=== PATIENT | male | born 1960 ===

== ENCOUNTER 2021-02-11 03:15 | Emergency (ER) | payer OTHER ==
[2021-02-12 13:20] VITALS: BP 130/85
== END 2021-02-12 13:20 ==
LOC: EEVIPCON 03:15 → ED 03:15
DX: T14.91XA Suicide attempt, initial encounter (principal); Z03.818 Encounter for observation for suspected exposure to other biological agents ruled out; I10 Essential (primary) hypertension; E11.9 Type 2 diabetes mellitus without complications; X58.XXXA Exposure to other specified factors, initial encounter; Y93.89 Activity, other specified; Y92.89 Other specified places as the place of occurrence of the external cause; Y99.8 Other external cause status
CPT/HCPCS: 36415; 80053; 80307; 81001; 82962; 85025; 87086; 96372; 99285; J1200; J1630; J3486; U0003; 80320; G0480

== ENCOUNTER 2021-03-12 23:26 | Emergency (ER) | payer SELFPAY ==
--- NOTE | 2021-03-13 01:03 | Event Note ---
ED Screening Note Date of service: 03/13/21 Time: 00:58 ED Screening Note: 60 y/o male pt w/ hx of multiple mental health issues (per Liborio Negron Torres staff member accompanying patient) presents to the ED via EMS w/ complaints of dizziness and hypotension starting tonight. No new medications. Pt has a hx of HTN and takes BP medication in the morning. He was not symptomatic at the time of his last scheduled dose. No recent fall, trauma, or injury. Systolic BP en route to ED was reportedly in the 80's. BP 84/44 in triage. General: Awake, appropriately interactive, no acute distress. Neck: Supple. Full range of motion intact. Cardiovascular: Normal peripheral perfusion. Pulmonary: No respiratory distress. Patient is speaking normally without use of accessory muscles. Skin: No apparent rashes or lesions. Neurological: No facial asymmetry. Speech is clear. Follows commands. Patient is alert and oriented. Musculoskeletal: Moves all four extremities spontaneously with normal range of motion. Psych: Cooperative. Appropriate mood and affect. Ordered EKG, labs, chest x-ray. Requested cardiac nurse specialist, continuous pulse oximetry, peripheral IV access. electrical cad technician and charge nurse aware. I have greeted and performed a focused rapid initial assessment of this patient. A comprehensive ED assessment and evaluation of the patient, analysis of all test results, and completion of the medical decision-making process will be conducted by additional ED providers. This initial assessment/diagnostic orders/clinical plan/treatment(s) is/are subject to change based on patients health status, clinical progression and re-assessment. Further treatment and workup at subsequent clinical provider's discretion. Patient/guardian urged not to elope from the ED as their condition may be serious if not clinically assessed and managed.
[2021-03-13] MEDS ORDERED: SODIUM CHLORIDE 0.9% 1000 ML 1,000 ML IV ONE (01:22)
[2021-03-13 01:46] LABS: Basophils % (Auto) 0.5 % (0.0-1.8); Eosinophils # (Auto) 0.1 K/mm3 (0.0-0.4); Eosinophils % (Auto) 1.6 % (0.0-4.3); Hematocrit 43.6 % (35.5-45.6); Hemoglobin 14.7 gm/dl (11.8-15.2); Lymphocytes # (Auto) 1.2 K/mm3 (1.2-5.4); Lymphocytes % (Auto) 18.8 % (13.4-35.0); Mean Corpuscular HGB Conc 34 % (32-34); Mean Corpuscular Volume 90 fl (84-94); Monocytes # (Auto) 0.8 K/mm3 (0.0-0.8); Monocytes % (Auto) 11.8 % (0.0-7.3); Platelet Count 232 K/mm3 (140-440); Red Blood Count 4.82 M/mm3 (3.65-5.03); Red Cell Distribution Width 14.7 % (13.2-15.2)
[2021-03-13 02:04] LABS: Alanine Aminotransferase 22 units/L (7-56); BUN/Creatinine Ratio 14; Blood Urea Nitrogen 13 mg/dL (9-20); Hemolysis Index 3
--- NOTE | 2021-03-13 02:52 | Emergency Department Report ---
ED General Adult HPI - General Chief complaint: Dizziness Stated complaint: LOW BLOOD PRESSURE Time Seen by Provider: 03/13/21 01:02 Source: patient Mode of arrival: Wheelchair Limitations: No Limitations - History of Present Illness Initial comments: 60-year-old male, history of hypertension, diabetes, depression, presents to ED with low blood pressure from [facility]. Patient apparently complained of some dizziness. Blood pressure found to be 70/49 at the facility. Patient sent to ED for further evaluation. Patient currently taking Wellbutrin, Prozac, Seroquel, Metformin, Toprol, lisinopril, baby aspirin. Patient states he was given Seroquel prior to his blood pressure dropping and believes this is the cause of his hypotension. Patient also states he did not eat or drink anything today. He does not give a reason as to why. He denies any chest pain, abdominal pain, shortness of breath, vomiting, diarrhea. Patient seen and evaluated in acute waiting room area as there are no available rooms in the ED due to COVID-19 pandemic. -: This evening Consistency: constant Improves with: none Worsens with: none Associated Symptoms: weakness. denies: chest pain, fever/chills, nausea/vomiting, shortness of breath - Related Data Home Medications Medication Instructions Recorded Confirmed Last Taken Enalapril Maleate [Vasotec] 10 mg PO DAILY 02/11/21 02/11/21 Unknown Fenofibric Acid (Choline) 135 mg PO DAILY 02/11/21 02/11/21 Unknown [Fenofibric Acid] Metoprolol [Lopressor] 25 mg PO DAILY 02/11/21 02/11/21 Unknown metFORMIN [Glucophage] 500 mg PO QDAY 02/11/21 02/11/21 Unknown Allergies Allergy/AdvReac Type Severity Reaction Status Date / Time Penicillins Allergy Unknown Verified 03/13/21 00:40 ED Review of Systems ROS: Stated complaint: LOW BLOOD SUGAR Other details as noted in HPI Comment: All other systems reviewed and negative Constitutional: denies: fever Respiratory: denies: shortness of breath Cardiovascular: denies: chest pain Gastrointestinal: denies: abdominal pain, vomiting, diarrhea ED Past Medical Hx - Past Medical History Hx Hypertension: Yes Hx Diabetes: Yes - Surgical History Additional Surgical History: back surgery >10 yrs ago - Social History Smoking Status: Never Smoker Substance Use Type: None - Medications Home Medications: Home Medications Medication Instructions Recorded Confirmed Last Taken Type Enalapril Maleate [Vasotec] 10 mg PO DAILY 02/11/21 02/11/21 Unknown History Fenofibric Acid (Choline) 135 mg PO DAILY 02/11/21 02/11/21 Unknown History [Fenofibric Acid] Metoprolol [Lopressor] 25 mg PO DAILY 02/11/21 02/11/21 Unknown History metFORMIN [Glucophage] 500 mg PO QDAY 02/11/21 02/11/21 Unknown History ED Physical Exam - General Limitations: No Limitations General appearance: alert, in no apparent distress - Head Head exam: Present: atraumatic, normocephalic - Eye Eye exam: Present: normal appearance, EOMI - ENT ENT exam: Present: mucous membranes moist - Neck Neck exam: Present: normal inspection - Respiratory Respiratory exam: Present: normal lung sounds bilaterally. Absent: respiratory distress - Cardiovascular Cardiovascular Exam: Present: regular rate, normal rhythm - GI/Abdominal GI/Abdominal exam: Present: soft. Absent: distended, tenderness - Extremities Exam Extremities exam: Present: normal inspection - Neurological Exam Neurological exam: Present: alert. Absent: motor sensory deficit - Psychiatric Psychiatric exam: Present: flat affect - Skin Skin exam: Present: warm, dry, intact, normal color ED Course Vital Signs 03/13/21 03/13/21 00:35 03:31 Temperature 97.5 F L Pulse Rate 71 77 Respiratory 16 Rate Blood Pressure 84/44 123/64 [Right] O2 Sat by Pulse 100 Oximetry ED Medical Decision Making - Lab Data Result diagrams: 03/13/21 00:59 03/13/21 00:59 - Medical Decision Making 60-year-old male presents to ED from psychiatric facility with low blood pressure. Initial BP in ED 84/44. Patient had no complaints except for dizziness. Patient refused chest x-ray and UA testing. He is afebrile. WBCs a re normal. He is in no respiratory distress, O2 sats are normal. Remainder of labs are normal. Patient was given 1 L bolus of normal saline. With repeat vital sign check, BP improved to 123/64. Patient states he is feeling better at this time. Will be discharged back to psychiatric facility, with instructions to hold blood pressure medications. Return precautions given. - Differential Diagnosis Dehydration, medication effect Critical care attestation.: If time is entered above; I have spent that time in minutes in the direct care of this critically ill patient, excluding procedure time. ED Disposition Clinical Impression: Hypotension Disposition: 01 HOME / SELF CARE / HOMELESS Is pt being admited?: No Condition: Stable Instructions: Hypotension, [id number] Referrals: PRIMARY CARE, [Primary Care Provider] - 3-5 Days Time of Disposition: 03:36 Print Language: WELSH
[2021-03-13 03:33] VITALS: BP 123/64
== END 2021-03-13 03:48 | disposition home or self-care (01) ==
LOC: ED 23:26
DX: I95.9 Hypotension, unspecified (principal); I10 Essential (primary) hypertension; E11.9 Type 2 diabetes mellitus without complications; Z79.899 Other long term (current) drug therapy; Z98.890 Other specified postprocedural states; Z88.0 Allergy status to penicillin
CPT/HCPCS: 36415; 80053; 83735; 84484; 85025; 96360; 99283; J7030